=== PATIENT | male | born 1955 | race Caucasian/White ===

== ENCOUNTER 2019-08-20 15:43 | Emergency (ER) | payer OTHER ==
[2019-08-20] MEDS ORDERED: Lidocaine 1% (PF) 30 ML VIAL ONE (16:13)
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
[2019-08-20 16:39] LABS: #Eosinphils 0.2 thou/uL (0.0-0.7); Hemoglobin 12.3 g/dL (14.0-18.0); Mean Corpuscular Volume 96.3 fL (78.0-98.0); Mean Platelet Volume 8.1 fL (7.4-10.4)
[2019-08-20 16:40] LABS: #Basophils 0.1 thou/uL (0.0-0.2); #Lymphocytes 0.7 thou/uL (1.20-3.40); #Monocytes 0.8 thou/uL (0.11-0.59); %Basophils 1.5 % (0.0-1.0); %Lymphocytes 6.9 % (21.0-51.0); %Monocytes 7.9 % (0.0-10.0); %Neutrophils 81.7 % (42.0-75.0); Mean Corpuscular HGB CONC 32.3 g/dL (32.0-36.0); Mean Corpuscular Hemoglobin 31.1 pg (27.0-31.0); Platelet Count 286 thou/uL (130-400); RBC Distribution Width 11.8 % (11.5-14.5); Red Blood Cell (RBC) Count 3.96 mill/uL (4.70-6.10); White Blood Cell (WBC) Count 9.7 thou/uL (4.8-10.8)
[2019-08-20] MEDS ORDERED: Bacitracin 1 PK ONE (16:45)
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
[2019-08-20 16:56] LABS: ALT (SGPT) 18 U/L (8-55); AST (SGOT) 31 U/L (5-34); Albumin 3.6 g/dL (3.4-4.8); Alkaline Phosphatase 79 U/L (40-110); Anion Gap 15 mmol/L (10-20); BUN (Urea Nitrogen) 22 mg/dL (8.4-25.7); Bilirubin, Total 0.3 mg/dL (0.2-1.2); Calc. Creatinine Clearance 0 mL/min (70-130); Calcium 8.7 mg/dL (7.8-10.44); Carbon Dioxide 24 mmol/L (23-31); Chloride 97 mmol/L (98-107); Estimated GFR-MDRD Greater than 90; Globulin 3.4 g/dL (2.4-3.5); Glucose 94 mg/dL (80-115); Lipase 18 U/L (8-78); Potassium 4.3 mmol/L (3.5-5.1); Sodium 132 mmol/L (136-145)
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
== END 2019-08-20 17:22 | disposition home or self-care (01) ==
LOC: NAV ERS 15:43
DX: S61.411A Laceration without foreign body of right hand, initial encounter (principal); S16.1XXA Strain of muscle, fascia and tendon at neck level, initial encounter; S20.219A Contusion of unspecified front wall of thorax, initial encounter; S00.81XA Abrasion of other part of head, initial encounter; S00.211A Abrasion of right eyelid and periocular area, initial encounter; Z87.891 Personal history of nicotine dependence; V89.2XXA Person injured in unspecified motor-vehicle accident, traffic, initial encounter
CPT/HCPCS: 12001; 70450; 71260; 72125; 74177; 80053; 83690; 85025; J2001